=== PATIENT | male | born 1970 | race Hispanic/Latino ===

== ENCOUNTER 2019-12-01 23:13 | Inpatient (IN) | payer OTHER, SELFPAY ==
[~2019-12-01] VITALS: Ht 167.6 cm; Wt 144.7 kg
[2019-12-02] MEDS ORDERED: LEVOFLOXACIN 750 MG/D5W 150 ML 150 ML ONE (00:02)
[2019-12-02] MEDS ORDERED: ACETAMINOPHEN EXTRA STRENGTH 500 MG TABLET ONE (00:02)
[2019-12-02] MEDS ORDERED: CEFTRIAXONE SODIUM 1 GM ONE (00:02)
[2019-12-02] MEDS ORDERED: GUAIFENESIN-DM 200/20 MG 10 ML PO PRN (03:45)
[2019-12-02] MEDS ORDERED: ONDANSETRON HCL 4 MG/2 ML VIAL IV PRN (03:45)
[2019-12-02] MEDS ORDERED: FAMOTIDINE/PF 20 MG/2 ML VIAL IV ONE (08:25)
[2019-12-02] MEDS ORDERED: FAMOTIDINE/PF 20 MG/2 ML VIAL IV SCH (09:00)
[2019-12-02] MEDS ORDERED: ACETAMINOPHEN 325 MG TAB ONE (11:15)
--- NOTE | 2019-12-02 15:15 | NUR ---
DISCHARGE INSTRUCTION DISCHARGE INSTRUCTION GIVEN AND PATIENT VERBALIZED UNDERSTANDING, IV REMOVED AND SITE DRESSED , PATIENT INSTRUCTED IF SX WORSEN TO COME TO THE ER. PATIENT GIVEN SITES FOR RETESTING IN 14 DAYS AFTER QUARANTINE
[2019-12-02] MEDS ORDERED: LEVOFLOXACIN 500 MG/D5W 100 ML 100 ML IV SCH (21:00)
== END 2019-12-02 15:43 | disposition home or self-care (01) | DRG 179 ==
LOC: EDH 23:13 → EDHIP 23:14
PROVIDERS: ADMIT Internal Medicine; ATTEND Internal Medicine
DX: U07.1 COVID-19 (principal)